=== PATIENT | female | born 1965 | race Caucasian/White ===

== ENCOUNTER 2022-09-04 04:24 | Day surgery (SDC) | payer OTHER ==
[2022-09-03 09:42] VITALS: BMI 23.3
[2022-09-04 11:35] VITALS: RESP 18
[2022-09-04 12:03] VITALS: BP 140/93; PULSE 63; TEMP 97.5
== END 2022-09-04 12:06 | disposition home or self-care (01) ==
LOC: JASU-ENDO 04:24
PROVIDERS: ATTEND Internal Medicine Gastroenterology
PROC: 0DBL8ZX Excision of Transverse Colon, Via Natural or Artificial Opening Endoscopic, Diagnostic (ICD-10-PCS; principal; 2022-09-04 10:00)
DX: Z12.11 Encounter for screening for malignant neoplasm of colon (principal); D12.3 Benign neoplasm of transverse colon; K64.8 Other hemorrhoids
CPT/HCPCS: 88305-TC